=== PATIENT | male | born 1995 | race Hispanic/Latino ===

== ENCOUNTER 2017-06-30 08:08 | Emergency (ER) | payer MEDICAID | END 2017-06-30 12:20 | disposition home or self-care (01) | LOC: EDH 08:08 | DX: S60.222A Contusion of left hand, initial encounter (principal); S60.221A Contusion of right hand, initial encounter; F41.1 Generalized anxiety disorder; R45.851 Suicidal ideations; R45.4 Irritability and anger; R05 Cough; Z72.0 Tobacco use; Y04.0XXA Assault by unarmed brawl or fight, initial encounter; Y93.89 Activity, other specified; Y92.89 Other specified places as the place of occurrence of the external cause; Y99.8 Other external cause status | CPT/HCPCS: 99281 ==